=== PATIENT | female | born 1965 | race Caucasian/White ===

== ENCOUNTER → 2021-10-25 10:00 | Outpatient (REF) | payer BC, SELFPAY | LOC: ANHLAB 10:00 | PROVIDERS: PCP Family Medicine; Visit Provider Nurse Practitioner | DX: C44.321 Squamous cell carcinoma of skin of nose (principal) | CPT/HCPCS: 88305 ==

== ENCOUNTER → 2021-11-26 10:48 | Outpatient (REF) | payer BC, SELFPAY | LOC: ANHLAB 10:48 | PROVIDERS: PCP Family Medicine; Visit Provider Nurse Practitioner | DX: C44.321 Squamous cell carcinoma of skin of nose (principal) | CPT/HCPCS: 88305; 88331 ==